=== PATIENT | female | born 1995 | race Caucasian/White ===

== ENCOUNTER → 2017-06-01 | Outpatient (CLI) | payer OTHER ==
--- NOTE | 2017-06-01 09:41 | RADIOLOGY IMAGING REPORT ---
FACILITY: [facility] PATIENT NAME: Kera Choi : 1995 MR: [id number] V: [id number] EXAM DATE: ORDERING PHYSICIAN: NICOLE BARRAGAN TECHNOLOGIST: Location: [facility] Patient: Kera Choi : 1995 Visit/Account:[id number] Date of Sevice: 06/01/2017 GALLBLADDER HISTORY: Right upper quadrant pain since March COMPARISON: None. FINDINGS: Gallbladder: Unremarkable; no stones or sludge. Liver: Negative. Common duct: Normal, 2.9 mm diameter. Pancreas: Partially obscured by bowel, visualized aspects unremarkable. Right kidney: Unremarkable measuring 10.3 cm in length Upper abdominal aorta and IVC: Patent. Ascites: None visualized. IMPRESSION: Unremarkable right upper quadrant ultrasound Report Dictated By: Klarissa Kumar MD at 06/01/2017 9:35 AM Report E-Signed By: Klarissa Kumar MD at 06/01/2017 9:36 AM WSN:[email or web address]
== END ==
LOC: US 08:17
PROVIDERS: ATTEND Family Medicine
DX: R10.811 Right upper quadrant abdominal tenderness (principal)
CPT/HCPCS: 76705

== ENCOUNTER 2018-05-22 21:14 | Emergency (ER) | payer OTHER ==
[2018-05-22] MEDS ORDERED: NS(*) 0.9% 1000 ML BAG 1,000 ML IV ONE ×2 (21:24→22:50)
[2018-05-22] MEDS ORDERED: LEVO50TA80 PO (21:24)
--- NOTE | 2018-05-22 21:38 | EKG ---
FACILITY: [facility] PATIENT NAME: FADI CHISHOLM : [id number] MR: [id number] V: [id number] EXAM DATE: ORDERING PHYSICIAN: CK BENAVIDES TECHNOLOGIST: DORCAS Test Reason : SYNCOPE Blood Pressure : / mmHG Vent. Rate : 119 BPM Atrial Rate : 119 BPM P-R Int : 132 ms QRS Dur : 090 ms QT Int : 306 ms P-R-T Axes : 078 079 055 degrees QTc Int : 430 ms Sinus tachycardia Nonspecific T wave findings No previous ECGs available Confirmed by MARISOL GARCIA ([id number]) on 05/23/2018 1:12:41 AM Referred By: Confirmed By:MARISOL GARCIA
[2018-05-22 21:54] LABS: PLATELET COUNT, AUTOMATED 287 K/uL (150-450)
[2018-05-22] MEDS ORDERED: KETOROLAC 30 MG/ML VIAL IVP ONE (22:35)
[2018-05-22] MEDS ORDERED: fentaNYL CITR 100 MCG/2 ML AMP IVP ONE (22:35)
[2018-05-22] MEDS ORDERED: PROMETHAZINE 25 MG/ML 1 ML AMP IVP ONE (22:35)
[2018-05-22] MEDS ORDERED: PROM-110 PO (22:37)
[2018-05-22] MEDS ORDERED: LOR5/325 PO (22:37)
--- NOTE | 2018-05-22 22:41 | ER Report ---
History and Physical Time Seen By MD: 21:18 Hx. of Stated Complaint: patient states she was diagnosed with flu A yesterday and has been deydrated today. she was sitting in bed and passed out about 1800 HPI/ROS CHIEF COMPLAINT: Flu symptoms, syncope HISTORY OF PRESENT ILLNESS: 22-year-old female brought in by a friend after having a syncopal episode in her bed with flu symptoms. Patient was diagnosed with influenza A. She's been on Tamiflu. Patient was taking some Tylenol today. She's not taken anything else. She sat up in bed and had an episode where she fainted. He reports feeling bad. On arrival, she is tachycardic to 150s and appears dehydrated. REVIEW OF SYSTEMS: Respiratory: no dyspnea. Cardiovascular: No chest pain, no palpitations. Gastrointestinal: No vomiting, no abdominal pain. Musculoskeletal: No back pain. Allergies: Coded Allergies: No Known Drug Allergies (Unverified , 05/22/18) Home Meds Active Scripts Hydrocodone Bit/Acetaminophen (HYDROCODON-ACETAMINOPHEN 5-325) 1 Each Tablet, 1 EACH PO Q4-6H PRN for cough or pain. Suppression, #12 TAKE ONE TABLET BY MOUTH EVERY 4-6 HOURS NEEDED FOR PAIN Prov:CK BENAVIDES DO 05/22/18 Promethazine Hcl (PROMETHAZINE HCL) 25 Mg Tablet, 25 MG PO Q4H PRN for nausea or cough suppression, #14 TAB Prov:CK BENAVIDES DO 05/22/18 Reported Medications Levothyroxine Sodium (SYNTHROID) 50 Mcg Tablet, 50 MCG PO QDAY, TAB 05/22/18 Reviewed Nurses Notes: Yes Old Medical Records Reviewed: Yes Constitutional Vital Sign - Last 24 Hours 05/22/18 05/22/18 05/22/18 05/22/18 21:14 21:18 21:18 21:20 Temp 102.8 Pulse ??? 155 Resp 20 B/P (MAP) 143/97 (112) 143/97 Pulse Ox 88 O2 Delivery Room Air O2 Flow Rate 1.0 05/22/18 05/22/18 05/22/18 05/22/18 21:30 21:44 21:45 21:50 Pulse 134 129 Resp 20 15 B/P (MAP) 143/89 (107) 130/95 (107) Pulse Ox 95 95 2/2305/22/18 05/22/18 05/22/18 22:00 22:15 22:20 22:30 Pulse 121 Resp 15 B/P (MAP) 136/65 (88) 124/68 (86) 116/78 (91) Pulse Ox 97 05/22/18 05/22/18 05/22/18 05/22/18 22:45 22:50 23:00 23:05 Pulse 124 110 Resp 9 11 B/P (MAP) 124/82 (96) 119/65 (83) Pulse Ox 98 96 05/22/18 23:15 Temp 98.4 B/P (MAP) 117/68 (84) Intake and Output 05/22/18 05/22/18 05/23/18 15:00 23:00 07:00 Intake Total 1000 ml 1000 ml Balance 1000 ml 1000 ml Physical Exam Vital signs stable, fever 102.8, pale appearing, tachycardic General Appearance: The patient is alert, has no immediate need for airway protection and no current signs of toxicity., Pale, warm. Skin HEENT: Pupils equal and round no injection. TMs normal, oropharynx with mild erythema Respiratory: Chest is non tender, lungs are clear to auscultation. Cardiac: regular rate and rhythm Gastrointestinal: Abdomen is soft and non tender, no masses, bowel sounds normal. Musculoskeletal: Neck: Neck is supple and non tender. No meningismus, no lymphadenopathy Extremities have full range of motion and are non tender. Skin: No rashes or lesions. DIFFERENTIAL DIAGNOSIS: After history and physical exam differential diagnosis was considered for adult fever including but not limited to viral syndromes including influenza, urinary tract infection, pneumonia and sepsis. Additionally,syncope including but not limited to vasovagal syncope, arrhythmia, dehydration, and blood loss. Medical Decision Making Data Points Result Diagram: 05/22/18214105/22/182141 Laboratory Hematology Test 05/22/18 21:42 05/22/18 22:29 Red Blood Count 4.59 M/uL (4.17-5.56) Mean Corpuscular Volume 90.3 fL (80.0-96.0) Mean Corpuscular Hemoglobin 31.1 pg (26.0-33.0) Mean Corpuscular Hemoglobin Concent 34.4 g/dL (32.0-36.0) Red Cell Distribution Width 12.3 % (11.5-14.5) Mean Platelet Volume 7.3 fL (7.2-11.1) Neutrophils (%) (Auto) 74.9 % (39.4-72.5) Lymphocytes (%) (Auto) 14.0 % (17.6-49.6) Monocytes (%) (Auto) 10.0 % (4.1-12.4) Eosinophils (%) (Auto) 0.6 % (0.4-6.7) Basophils (%) (Auto) 0.5 % (0.3-1.4) Nucleated RBC Relative Count (auto) 0.1 /100WBC Neutrophils # (Auto) 4.0 K/uL (2.0-7.4) Lymphocytes # (Auto) 0.8 K/uL (1.3-3.6) Monocytes # (Auto) 0.5 K/uL (0.3-1.0) Eosinophils # (Auto) 0.0 K/uL (0.0-0.5) Basophils # (Auto) 0.0 K/uL (0.0-0.1) Nucleated RBC Absolute Count (auto) 0.01 K/uL Sodium Level 135 mmol/L (137-145) Potassium Level 3.7 mmol/L (3.5-5.0) Chloride Level 100 mmol/L (98-107) Carbon Dioxide Level 23 mmol/L (22-31) Blood Urea Nitrogen 9 mg/dl (7-18) Creatinine 0.90 mg/dl (0.52-1.04) Glomerular Filtration Rate Calc > 60.0 Random Glucose 91 mg/dl (75-110) Calcium Level 9.0 mg/dl (8.4-10.2) Total Bilirubin 0.5 mg/dl (0.2-1.3) Aspartate Amino Transf (AST/SGOT) 21 U/L (0-35) Alanine Aminotransferase (ALT/SGPT) 29 U/L (0-56) Alkaline Phosphatase 103 U/L (0-126) Total Protein 7.9 g/dl (6.3-8.2) Albumin 4.4 g/dl (3.5-5.0) Human Chorionic Gonadotropin, Qual Negative (NEGATIVE) Urine Color Yellow Urine Clarity Slightly-cloudy Urine pH 5.0 pH (4.8-9.5) Urine Specific [place] 1.011 Urine Protein Negative mg/dL (NEGATIVE) Urine Glucose (UA) Negative mg/dL (NEGATIVE) Urine Ketones 20 mg/dL (NEGATIVE) Urine Blood Large (NEGATIVE) Urine Nitrite Negative (NEGATIVE) Urine Bilirubin Negative (NEGATIVE) Urine Urobilinogen Negative mg/dL (0.2-1.9) Urine Leukocyte Esterase Trace (NEGATIVE) Urine RBC 3 /HPF (0-2/HPF) Urine WBC 7 /HPF (0-5/HPF) Urine Squamous Epithelial Cells Many /LPF (</=FEW) Urine Bacteria Many /HPF (NONE-FEW) Urine Mucus Few /HPF (NONE-FEW) Chemistry Test 05/22/18 21:42 05/22/18 22:29 White Blood Count 5.4 k/uL (4.5-11.0) Red Blood Count 4.59 M/uL (4.17-5.56) Hemoglobin 14.3 g/dL (12.0-16.0) Hematocrit 41.4 % (34.0-47.0) Mean Corpuscular Volume 90.3 fL (80.0-96.0) Mean Corpuscular Hemoglobin 31.1 pg (26.0-33.0) Mean Corpuscular Hemoglobin Concent 34.4 g/dL (32.0-36.0) Red Cell Distribution Width 12.3 % (11.5-14.5) Platelet Count 287 K/uL (150-450) Mean Platelet Volume 7.3 fL (7.2-11.1) Neutrophils (%) (Auto) 74.9 % (39.4-72.5) Lymphocytes (%) (Auto) 14.0 % (17.6-49.6) Monocytes (%) (Auto) 10.0 % (4.1-12.4) Eosinophils (%) (Auto) 0.6 % (0.4-6.7) Basophils (%) (Auto) 0.5 % (0.3-1.4) Nucleated RBC Relative Count (auto) 0.1 /100WBC Neutrophils # (Auto) 4.0 K/uL (2.0-7.4) Lymphocytes # (Auto) 0.8 K/uL (1.3-3.6) Monocytes # (Auto) 0.5 K/uL (0.3-1.0) Eosinophils # (Auto) 0.0 K/uL (0.0-0.5) Basophils # (Auto) 0.0 K/uL (0.0-0.1) Nucleated RBC Absolute Count (auto) 0.01 K/uL Glomerular Filtration Rate Calc > 60.0 Calcium Level 9.0 mg/dl (8.4-10.2) Total Bilirubin 0.5 mg/dl (0.2-1.3) Aspartate Amino Transf (AST/SGOT) 21 U/L (0-35) Alanine Aminotransferase (ALT/SGPT) 29 U/L (0-56) Alkaline Phosphatase 103 U/L (0-126) Total Protein 7.9 g/dl (6.3-8.2) Albumin 4.4 g/dl (3.5-5.0) Human Chorionic Gonadotropin, Qual Negative (NEGATIVE) Urine Color Yellow Urine Clarity Slightly-cloudy Urine pH 5.0 pH (4.8-9.5) Urine Specific [place] 1.011 Urine Protein Negative mg/dL (NEGATIVE) Urine Glucose (UA) Negative mg/dL (NEGATIVE) Urine Ketones 20 mg/dL (NEGATIVE) Urine Blood Large (NEGATIVE) Urine Nitrite Negative (NEGATIVE) Urine Bilirubin Negative (NEGATIVE) Urine Urobilinogen Negative mg/dL (0.2-1.9) Urine Leukocyte Esterase Trace (NEGATIVE) Urine RBC 3 /HPF (0-2/HPF) Urine WBC 7 /HPF (0-5/HPF) Urine Squamous Epithelial Cells Many /LPF (</=FEW) Urine Bacteria Many /HPF (NONE-FEW) Urine Mucus Few /HPF (NONE-FEW) Urinalysis Test 05/22/18 22:29 Urine Color Yellow Urine Clarity Slightly-cloudy Urine pH 5.0 pH (4.8-9.5) Urine Specific [place] 1.011 Urine Protein Negative mg/dL (NEGATIVE) Urine Glucose (UA) Negative mg/dL (NEGATIVE) Urine Ketones 20 mg/dL (NEGATIVE) Urine Blood Large (NEGATIVE) Urine Nitrite Negative (NEGATIVE) Urine Bilirubin Negative (NEGATIVE) Urine Urobilinogen Negative mg/dL (0.2-1.9) Urine Leukocyte Esterase Trace (NEGATIVE) Urine RBC 3 /HPF (0-2/HPF) Urine WBC 7 /HPF (0-5/HPF) Urine Squamous Epithelial Cells Many /LPF (</=FEW) Urine Bacteria Many /HPF (NONE-FEW) Urine Mucus Few /HPF (NONE-FEW) EKG/Imaging EKG Interpretation 12 lead EK Rhythm: Sinus tachycardia 119 bpm [place]: normal QRS: normal ST segments: normal, no evidence of ischemia or dysrhythmia ED Course/Re-evaluation Clinical Indication for ER IV: Hydration, IV Access ED Course Patient was admitted to an examination room. H&P was done. The differential diagnoses was considered. Patient grossly tachycardic and had a syncopal episode. She has a fever to 102.8. She has a recent diagnosis of influenza A. She is currently taking Tamiflu and some Tylenol. She's not been drinking very much. Peripheral IV is established. CBC in the CMP were ordered. Patient's tr eated with IV fluid hydration, Zofran, Toradol, fentanyl. A 2nd liter is administered. Her laboratory studies are unremarkable. An EKG shows sinus tachycardia without evidence of ischemia. Patient's test is negative to rule out ectopic as the etiology of her syncope. Patient feels much better after 2 L, and medication. She'll be discharged home on Phenergan, and hydrocodone tablets. She is advised to continue ibuprofen 600 mg 3 times daily. Decision to Disposition Date: May 22, 2018 Decision to Disposition Time: 22:35 Depart Departure Latest Vital Signs Vital Signs Date Time Temp Pulse Resp B/P (MAP) Pulse Ox O2 Delivery O2 Flow Rate FiO2 05/22/18 23:15 98.4 117/68 (84) 05/22/18 23:05 110 11 96 05/22/18 21:20 1.0 05/22/18 21:18 Room Air Impression: Primary Impression: Influenza A Additional Impressions: Syncope Dehydration Condition: Improved Disposition: HOME OR SELF-CARE New Scripts Hydrocodone Bit/Acetaminophen (HYDROCODON-ACETAMINOPHEN 5-325) 1 Each Tablet 1 EACH PO Q4-6H PRN for cough or pain. Suppression, #12 TAKE ONE TABLET BY MOUTH EVERY 4-6 HOURS NEEDED FOR PAIN Prov: CK BENAVIDES DO 05/22/18 Promethazine Hcl (PROMETHAZINE HCL) 25 Mg Tablet 25 MG PO Q4H PRN for nausea or cough suppression, #14 TAB Prov: CK BENAVIDES DO 05/22/18 Patient Instructions: Influenza (ED), Syncope (ED) Additional Instructions: Take ibuprofen 200 mg 3-4 tablets 3 times a day with food Drink plenty of water, especially popsicles Take medications to control your symptoms and help to sleep Phenergan/promethazine for nausea control and to dry up the cough Hydrocodone to suppress the cough and take care of the body aches and pain Continue Tamiflu until finished Follow-up with student [facility] if unimproved in 3-5 days Problem Qualifiers Additional Impressions: Syncope Syncope type: vasovagal syncope Qualified Codes: R55 - Syncope and collapse CK BENAVIDES DO May 22, 2018 22:41
[2018-05-22 23:15] VITALS: BP 117/68
[2018-05-22] MEDS ORDERED: ACET/HYDROC 5/325MG TH ER ONLY 2 TAB/BOTTLE PO ONE (23:15)
[2018-05-22] MEDS ORDERED: PROMETHAZINE HCL 25 MG TAB TH 2 TAB/BOTTLE PO ONE (23:15)
== END 2018-05-22 23:36 | disposition home or self-care (01) ==
LOC: ER 21:26
DX: J09.X2 Influenza due to identified novel influenza A virus with other respiratory manifestations (principal); R55 Syncope and collapse; E86.0 Dehydration
CPT/HCPCS: 81001; 84703; 85025; 93005; 96361; 96374; 96375; 99284; J1885; J2550; J3010; J7030; 82040; 82247; 82310; 82374; 82435; 82565; 82947; 84075; 84132; 84155; 84295; 84450; 84460; 84520

== ENCOUNTER 2018-05-31 18:20 | Inpatient (IN) | payer OTHER ==
[~2018-05-31] VITALS: Ht 165.1 cm; Wt 95.3 kg
--- NOTE | 2018-05-31 18:21 | ER Report ---
History and Physical Time Seen By MD: 18:21 HPI/ROS CHIEF COMPLAINT: Shortness of breath HISTORY OF PRESENT ILLNESS: 22-year-old female seen here in the ER last week, diagnosed with influenza A. Was discharged home on 05/22/18 with Phenergan, and hydrocodone for symptom relief. Patient got really short of breath yesterday. And severely today. Presented urgent care, was noted to have a pulse ox 84% on room air. Had a chest x-ray performed and serial nebulizers unable to improve her saturation. She was sent over for further evaluation. Chest x-ray suggests comp locating pneumonia. REVIEW OF SYSTEMS: Respiratory: As above Cardiovascular: No chest pain, no palpitations. Gastrointestinal: No vomiting, no abdominal pain. Musculoskeletal: No back pain. Allergies: Coded Allergies: No Known Drug Allergies (Unverified , 05/22/18) Home Meds Reported Medications Levothyroxine Sodium (SYNTHROID) 50 Mcg Tablet, 50 MCG PO QDAY, TAB 05/22/18 Discontinued Scripts Hydrocodone Bit/Acetaminophen (HYDROCODON-ACETAMINOPHEN 5-325) 1 Each Tablet, 1 EACH PO Q4-6H PRN for cough or pain. Suppression, #12 TAKE ONE TABLET BY MOUTH EVERY 4-6 HOURS NEEDED FOR PAIN Prov:CK BENAVIDES DO 05/22/18 Promethazine Hcl (PROMETHAZINE HCL) 25 Mg Tablet, 25 MG PO Q4H PRN for nausea or cough suppression, #14 TAB Prov:CK BENAVIDES DO 05/22/18 Past Medical/Surgical History Influenza, syncope, hypothyroidism Reviewed Nurses Notes: Yes Old Medical Records Reviewed: Yes Constitutional Vital Sign - Last 24 Hours 05/31/18 05/31/18 05/31/18 05/31/18 18:26 18:30 18:38 18:40 Temp 99.0 Pulse 150 90 Resp 30 16 B/P (MAP) 133/95 (108) 133/95 Pulse Ox 77 O2 Delivery Room Air O2 Flow Rate 4.0 05/31/18 05/31/18 05/31/18 05/31/18 18:40 18:43 18:45 18:46 Pulse 99 Resp 16 B/P (MAP) 122/69 (86) 135/74 (94) Pulse Ox 96 O2 Delivery Nasal Cannula O2 Flow Rate 3.0 05/31/18 05/31/18 05/31/1819 18:50 19:00 19:20 19:45 Pulse 125 110 Resp 26 18 B/P (MAP) 130/71 (90) 123/59 (80) Pulse Ox 91 91 Physical Exam Vital signs stable, moderate tachycardia of 110. Pulse ox 76% on walking in. At rest 84% on room air General Appearance: The patient is alert, has no immediate need for airway protection and no current signs of toxicity. Slightly pale appearing, skin warm and dry, moderate respiratory distress HEENT: Pupils equal and round no injection. TMs normal, oropharynx with mild erythema, no exudate Respiratory: [Chest is non tender, right basilar crackles Cardiac: regular rate and rhythm Gastrointestinal: Abdomen is soft and non tender, no masses, bowel sounds normal. Musculoskeletal: Neck: Neck is supple and non tender. Extremities have full range of motion and are non tender. No edema, no calf tenderness Skin: No rashes or lesions. DIFFERENTIAL DIAGNOSIS: After history and physical exam differential diagnosis was considered for shortness of breath including but not limited to pulmonary infectious process, COPD, asthma, pulmonary embolus and congestive heart failure. Medical Decision Making Data Points Result Diagram: 05/31/18 1831 05/31/18 1831 Laboratory Hematology Test 05/31/18 18:31 Red Blood Count 4.74 M/uL (4.17-5.56) Mean Corpuscular Volume 89.8 fL (80.0-96.0) Mean Corpuscular Hemoglobin 30.9 pg (26.0-33.0) Mean Corpuscular Hemoglobin Concent 34.4 g/dL (32.0-36.0) Red Cell Distribution Width 12.6 % (11.5-14.5) Mean Platelet Volume 7.8 fL (7.2-11.1) Neutrophils (%) (Auto) 77.2 % (39.4-72.5) Lymphocytes (%) (Auto) 12.1 % (17.6-49.6) Monocytes (%) (Auto) 9.1 % (4.1-12.4) Eosinophils (%) (Auto) 0.7 % (0.4-6.7) Basophils (%) (Auto) 0.9 % (0.3-1.4) Nucleated RBC Relative Count (auto) 0.1 /100WBC Neutrophils # (Auto) 8.2 K/uL (2.0-7.4) Lymphocytes # (Auto) 1.3 K/uL (1.3-3.6) Monocytes # (Auto) 1.0 K/uL (0.3-1.0) Eosinophils # (Auto) 0.1 K/uL (0.0-0.5) Basophils # (Auto) 0.1 K/uL (0.0-0.1) Nucleated RBC Absolute Count (auto) 0.01 K/uL Peripheral Blood Smear Yes Y/N Sodium Level 136 mmol/L (137-145) Potassium Level 3.5 mmol/L (3.5-5.0) Chloride Level 100 mmol/L (98-107) Carbon Dioxide Level 20 mmol/L (22-31) Blood Urea Nitrogen 8 mg/dl (7-18) Creatinine 0.60 mg/dl (0.52-1.04) Glomerular Filtration Rate Calc > 60.0 Random Glucose 90 mg/dl (75-110) Lactate 2.0 mmol/L (0.7-2.1) Calcium Level 9.2 mg/dl (8.4-10.2) Total Bilirubin 0.6 mg/dl (0.2-1.3) Aspartate Amino Transf (AST/SGOT) 36 U/L (0-35) Alanine Aminotransferase (ALT/SGPT) 49 U/L (0-56) Alkaline Phosphatase 99 U/L (0-126) B-Type Natriuretic Peptide 8 pg/ml (0-100) Total Protein 7.7 g/dl (6.3-8.2) Albumin 4.3 g/dl (3.5-5.0) Human Chorionic Gonadotropin, Qual Negative (NEGATIVE) Chemistry Test 05/31/18 18:31 White Blood Count 10.7 k/uL (4.5-11.0) Red Blood Count 4.74 M/uL (4.17-5.56) Hemoglobin 14.6 g/dL (12.0-16.0) Hematocrit 42.5 % (34.0-47.0) Mean Corpuscular Volume 89.8 fL (80.0-96.0) Mean Corpuscular Hemoglobin 30.9 pg (26.0-33.0) Mean Corpuscular Hemoglobin Concent 34.4 g/dL (32.0-36.0) Red Cell Distribution Width 12.6 % (11.5-14.5) Platelet Count 566 K/uL (150-450) Mean Platelet Volume 7.8 fL (7.2-11.1) Neutrophils (%) (Auto) 77.2 % (39.4-72.5) Lymphocytes (%) (Auto) 12.1 % (17.6-49.6) Monocytes (%) (Auto) 9.1 % (4.1-12.4) Eosinophils (%) (Auto) 0.7 % (0.4-6.7) Basophils (%) (Auto) 0.9 % (0.3-1.4) Nucleated RBC Relative Count (auto) 0.1 /100WBC Neutrophils # (Auto) 8.2 K/uL (2.0-7.4) Lymphocytes # (Auto) 1.3 K/uL (1.3-3.6) Monocytes # (Auto) 1.0 K/uL (0.3-1.0) Eosinophils # (Auto) 0.1 K/uL (0.0-0.5) Basophils # (Auto) 0.1 K/uL (0.0-0.1) Nucleated RBC Absolute Count (auto) 0.01 K/uL Peripheral Blood Smear Yes Y/N Glomerular Filtration Rate Calc > 60.0 Lactate 2.0 mmol/L (0.7-2.1) Calcium Level 9.2 mg/dl (8.4-10.2) Total Bilirubin 0.6 mg/dl (0.2-1.3) Aspartate Amino Transf (AST/SGOT) 36 U/L (0-35) Alanine Aminotransferase (ALT/SGPT) 49 U/L (0-56) Alkaline Phosphatase 99 U/L (0-126) B-Type Natriuretic Peptide 8 pg/ml (0-100) Total Protein 7.7 g/dl (6.3-8.2) Albumin 4.3 g/dl (3.5-5.0) Human Chorionic Gonadotropin, Qual Negative (NEGATIVE) EKG/Imaging EKG Interpretation 12 lead EK Rhythm: normal sinus rhythm [place]: normal QRS: normal ST segments:, S in 1, Q in 3, inverted T-wave in 3 noted Imaging X-ray: Two-view chest x-ray from urgent care reviewed was obtained. I viewed the images myself on the PACS system. My interpretation of the images is: There is dense consolidation in the anterior aspect of the right lower lobe. The radiologist interpretation had no clinically significant variation from this interpretation. Results: CT scan of the CTA pulmonary and gram was obtained. The results of the study are CT angiogram chest with contrast Indication: Severe dyspnea. Elevated d-dimer. Comparison: None available. Technique: Axial CT images are obtained through the chest after administration of 75 mL Isovue 370 IV contrast. Reformatted coronal and sagittal images were reviewed as well as coronal MIP images. One of the following dose optimization techniques was utilized in the performance of this exam: automated exposure control; adjustment of the mA and/or kV according to the patient's size; or use of an iterative reconstruction technique. Specific details can be referenced in the facility's radiology CT exam operational policy. FINDINGS: No evidence of filling defect within the pulmonary vasculature to suggest pulmonary embolus. The heart is normal size without pericardial effusion. Aorta shows no aneurysm or dissection. Mediastinum and hilar regions show no abnormal density. There are prominent lymph nodes present specimen the right hilar region with the largest lymph node measuring 2.8 x 1.8 cm. Consolidation of the anterior right lower lobe. Small right pleural effusion w ith atelectasis. There is diffuse patchy interstitial opacities seen in the lungs bilaterally without other areas of consolidation. No discrete nodules. Airways are clear. Bony structures show no acute fractures or aggressive bony lesions. Chest wall shows no enlarged axillary lymph nodes or masses. Limited views of the upper abdomen are unremarkable. IMPRESSION: 1. No evidence of pulmonary embolus. 2. Right lower lobe pneumonia. There is a small right pleural effusion with atelectasis. There is diffuse bilateral interstitial opacities which also may represent multilobar pneumonia. Follow-up exam can evaluate for clearing or other etiologies. 3. Enlarged right hilar lymph nodes are likely reactive. The study was read by the radiologist. I viewed the images myself on the PACS system. ED Course/Re-evaluation Clinical Indication for ER IV: Hydration, IV Access ED Course Patient was admitted to an examination room. H&P was done. The differential diagnoses was considered. On conical examination. Patient severely short of breath. Tachycardic. Patient was sent over from urgent care with a chest x-ray suggesting a pneumonia in the right lower lobe anterior segment. Patient was hypoxic at 84% on room air with significant respiratory distress and work. Her room air pulse ox on arrival was 77%. Patient was placed on supplemental O2. She required 4 L to get her saturations in the low 90s. Blood cultures were drawn. A lactate was drawn which returned at 2.0. D-dimer was noted from urgent care 2.2. An EKG was performed here which shows S1, Q in 3, inverted T in3 suspicious for pulmonary edema some. A CT pulmonary angiogram was ordered. It was negative for pulmonary embolism. It did show multiple infiltrates bilaterally, right greater than left. Patient was given 2 g of Rocephin IV. Patient's potassium from urgent care, was noted to be 2.9. On repeated is 3.5. She is not received any supplementation. Case was discussed with Dr. Karina rincon and the patient was admitted. 05/31/2018 8:12:15 pm case discussed with Dr. Karina rincon on-call, who accepts the patient for admission. Decision to Disposition Date: May 31, 2018 Decision to Disposition Time: 18:38 Depart Departure Latest Vital Signs Vital Signs Date Time Temp Pulse Resp B/P (MAP) Pulse Ox O2 Delivery O2 Flow Rate FiO2 05/31/18 19:45 123/59 (80) 05/31/18 19:20 110 18 91 05/31/18 18:40 Nasal Cannula 3.0 05/31/18 18:30 99.0 Impression: Primary Impression: Right lower lobe pneumonia Additional Impressions: Hypoxemia Hypothyroidism Condition: Improved Disposition: Admitted from ER Problem Qualifiers Primary Impression: Right lower lobe pneumonia Pneumonia type: due to unspecified organism Qualified Codes: J18.1 - Lobar pneumonia, unspecified organism Additional Impressions: Hypothyroidism Hypothyroidism type: unspecified Qualified Codes: E03.9 - Hypothyroidism, unspecified CK BENAVIDES DO May 31, 2018 18:21
[2018-05-31] MEDS ORDERED: NS(*) 0.9% 1000 ML BAG 1,000 ML IV ONE (18:29)
[2018-05-31] MEDS ORDERED: ALBUTEROL/IPRATROPIUM 3 ML NEB NEB ONE (18:30)
[2018-05-31 18:46] LABS: PLATELET COUNT, AUTOMATED 566 K/uL (150-450)
--- NOTE | 2018-05-31 18:48 | EKG ---
FACILITY: [facility] [place] PATIENT NAME: FADI CHISHOLM : [id number] MR: [id number] V: [id number] EXAM DATE: ORDERING PHYSICIAN: CK BENAVIDES TECHNOLOGIST: JEFF Test Reason : DYSPNEA Blood Pressure : / mmHG Vent. Rate : 099 BPM Atrial Rate : 099 BPM P-R Int : 136 ms QRS Dur : 094 ms QT Int : 346 ms P-R-T Axes : 069 063 011 degrees QTc Int : 444 ms Normal sinus rhythm Nonspecific T wave abnormality Abnormal ECG When compared with ECG of 22-MAY-2018 21:24, T wave inversion now evident in Inferior leads T wave inversion now evident in Anterior leads Confirmed by ARABELLA VALDERRAMA ([id number]) on 05/31/2018 10:16:22 PM Referred By: Confirmed By:ARABELLA VALDERRAMA
[2018-05-31] MEDS ORDERED: NS(*) 0.9% 50 ML BAG 50 ML ONE (19:34)
[2018-05-31] MEDS ORDERED: IOPAMIDOL 76% 100 ML INFUS BTL 100 ML ONE (19:34)
--- NOTE | 2018-05-31 20:03 | RADIOLOGY IMAGING REPORT ---
FACILITY: [facility] PATIENT NAME: Kera Choi : 1995 MR: [id number] V: [id number] EXAM DATE: ORDERING PHYSICIAN: CK BENAVIDES TECHNOLOGIST: Location: [facility] - [place] Patient: Kera Choi : 1995 Visit/Account:[id number] Date of Sevice: 05/31/2018 CT angiogram chest with contrast Indication: Severe dyspnea. Elevated d-dimer. Comparison: None available. Technique: Axial CT images are obtained through the chest after administration of 75 mL Isovue 370 IV contrast. Reformatted coronal and sagittal images were reviewed as well as coronal MIP images. One of the following dose optimization techniques was utilized in the performance of this exam: auto mated exposure control; adjustment of the mA and/or kV according to the patient's size; or use of an iterative reconstruction technique. Specific details can be referenced in the facility's radiology C T exam operational policy. FINDINGS: No evidence of filling defect within the pulmonary vasculature to suggest pulmonary embolus. The heart is normal size without pericardial effusion. Aorta shows no aneurysm or dissection. Mediast inum and hilar regions show no abnormal density. There are prominent lymph nodes present specimen the right hilar region with the largest lymph node measuring 2.8 x 1.8 cm. Consolidation of the anterior right lower lobe. Small right pleural effusion with atelectasis. There is diffuse patchy interstitial opacities seen in the lungs bilaterally without other areas of consoli dation. No discrete nodules. Airways are clear. Bony structures show no acute fractures or aggressive bony lesions. Chest wall shows no enlarged axil eber lymph nodes or masses. Limited views of the upper abdomen are unremarkable. IMPRESSION: 1. No evidence of pulmonary embolus. 2. Right lower lobe pneumonia. There is a small right pleural effusion with atelectasis. There is dif fuse bilateral interstitial opacities which also may represent multilobar pneumonia. Follow-up exam c an evaluate for clearing or other etiologies. 3. Enlarged right hilar lymph nodes are likely reactive. Report Dictated By: Cosmo Montano at 05/31/2018 7:54 PM Report E-Signed By: Cosmo Montano at 05/31/2018 8:00 PM [id number]
[2018-05-31] MEDS ORDERED: cefTRIAXone(*) 2 GM VIAL 2 GM in NS(*) 0.9% 100 ML ADDVANT BAG 100 ML IVPB ONE (20:10)
[2018-05-31 21:49] VITALS: BP 131/59
[2018-05-31] MEDS ORDERED: INFLUENZA VIRUS VAC 0.5ML SYR IM ONLY ONE (22:10)
--- NOTE | 2018-05-31 22:14 | History & Physical ---
History of Present Illness Chief Complaint Shortness of breath History of Present Illness This patient presented to the emergency room complaining of shortness of breath. She was diagnosed with influenza late last month and was improving, but started to have increased shortness of breath over the past several days. History Problems: (1) Hypothyroidism Status: Acute Home Meds Reported Medications Levothyroxine Sodium (SYNTHROID) 50 Mcg Tablet, 50 MCG PO QDAY, TAB 05/22/18 Discontinued Scripts Hydrocodone Bit/Acetaminophen (HYDROCODON-ACETAMINOPHEN 5-325) 1 Each Tablet, 1 EACH PO Q4-6H PRN for cough or pain. Suppression, #12 TAKE ONE TABLET BY MOUTH EVERY 4-6 HOURS NEEDED FOR PAIN Prov:CK BENAVIDES DO 05/22/18 Promethazine Hcl (PROMETHAZINE HCL) 25 Mg Tablet, 25 MG PO Q4H PRN for nausea or cough suppression, #14 TAB Prov:CK BENAVIDES DO 05/22/18 Allergies: Coded Allergies: No Known Drug Allergies (Unverified , 05/22/18) Hx Alcohol Use: Yes (OCC) Review of Systems All Systems Reviewed/Normal: Yes, Except as Noted Respiratory: Shortness of Breath Exam Vital Signs Vital Signs Date Time Temp Pulse Resp B/P (MAP) Pulse Ox O2 Delivery O2 Flow Rate FiO2 05/31/18 21:49 99.8 95 24 131/59 (83) 94 Nasal Cannula 3.0 Neuro: No Gross deficits Eyes: PERRLA Cardiovascular: Regular Rate and Rhythm Respiratory: Other (Crackles on right.) GI: Abd Soft and Non-Tender Extremities: No Edema Integumentary: No Cyanosis Medical Decision Making Data Points Result Diagram: 05/31/18183005/31/181830 Assessment and Plan Problems: (1) Bacterial pneumonia Assessment & Plan: Her chest CT did show a right sided infiltrate. She has been started on empiric treatment with ceftriaxone and azithromycin. Cultures are pending. (2) Hypoxemia Status: Acute Assessment & Plan: She does require supplemental oxygen. (3) Hypothyroidism Status: Acute Assessment & Plan: She is on chronic treatment with Synthroid. Venous Thromboembolism Antithrombotics Is Pt On Any Antithrombotics?: No Exam Sepsis Risk: Sepsis Risk Problem Qualifiers (1) Hypothyroidism: Hypothyroidism type: unspecified Qualified Codes: E03.9 - Hypothyroidism, unspecified ARABELLA VALDERRAMA DO May 31, 2018 22:14
[2018-05-31] MEDS ORDERED: AZITHROMYCIN(*) 500 MG 500 MG ONE (22:40)
[2018-05-31] MEDS ORDERED: NS(*) 0.9% 250 ML BAG 250 ML ONE (22:40)
[2018-05-31] MEDS ORDERED: WATER STERILE(*) 10 ML VIAL 10 ML ONE (22:40)
[2018-05-31] MEDS ORDERED: AZITHROMYCIN(*) 500 MG 500 MG in NS(*) 0.9% 250 ML BAG 250 ML IVPB SCH (22:51)
[2018-05-31] MEDS: NS(*) 0.9% 1000 ML BAG 1,000 ML IV PRN (23:05)
[2018-06-01] MEDS ORDERED: BENZONATATE 100 MG CAP PO PRN (00:30)
[2018-06-01 02:40] VITALS: BP 131/87
[2018-06-01] MEDS: LEVOTHYROXINE SOD 0.05 MG TAB PO SCH (05:16)
[2018-06-01] MEDS: NS(*) 0.9% 1000 ML BAG 1,000 ML IV PRN (07:13)
[2018-06-01 07:43] VITALS: BP 143/91
[2018-06-01] MEDS ORDERED: LEVALBUTEROL 1.25 MG/3 ML NEB NEB PRN (08:30)
[2018-06-01] MEDS ORDERED: methylPREDNIS SUCC 125 MG/2ML IVP ONE (08:30)
[2018-06-01] MEDS: ALBUTEROL/IPRATROPIUM 3 ML NEB NEB SCH ×3 (09:05→17:07)
[2018-06-01] MEDS: guaiFENesin SYR 200MG/10ML UDC PO PRN (09:28)
[2018-06-01 09:43] VITALS: Ht 165.1 cm; Wt 95.3 kg
--- NOTE | 2018-06-01 10:59 | Hospitalist Progress Note ---
Subjective Progress Notes Subjective She was admitted with pneumonia. She is still requiring 2.5L of oxygen. She reports she does not feel well today. She has cough, congestion, SOB. Patient Complains of: Cardiovascular: No: Chest Pain Respiratory: Cough, Congestion, Shortness of Breath Physical Exam Vital Signs Date Time Temp Pulse Resp B/P (MAP) Pulse Ox O2 Delivery O2 Flow Rate FiO2 06/01/18 09:07 93 Nasal Cannula 1.0 06/01/18 09:07 105 16 06/01/18 07:43 98.6 143/91 (108) Intake and Output 06/01/18 00:00 Intake Total 1600 ml Balance 1600 ml Intake Oral 600 ml IV Total 1000 ml General Appearance: Alert, Awake, No Acute Distress, Afebrile Neuro: No Gross deficits Cardiovascular: Regular Rate and Rhythm Respiratory: No Respiratory Distress, Other (expiratory wheezes, diffuse rhonchi throughout bilateral lung otto) GI: Soft and Non-Tender Extremities: Warm, Perfused; No Edema Psych: Alert & Oriented X3, Appropriate Mood & Affect Result Diagram: 05/31/18183005/31/181830 Assessment and Plan Problems: (1) Bacterial pneumonia Assessment & Plan: Her chest CT did show a right sided infiltrate. She has been started on empiric treatment with ceftriaxone and azithromycin. Blood cultures are pending show no growth currently. She will be placed on IV steroids and nebulizers today. (2) Hypoxemia Status: Acute Assessment & Plan: She does require supplemental oxygen. (3) Hypothyroidism Status: Acute Assessment & Plan: She is on chronic treatment with Synthroid. Exam Sepsis Risk: Sepsis Risk Problem Qualifiers (1) Hypothyroidism: Hypothyroidism type: unspecified Qualified Codes: E03.9 - Hypothyroidism, unspecified IMER JAMES [employer] Jun 01, 2018 10:59
[2018-06-01] MEDS ORDERED: PROMETHAZINE 25 MG/ML 1 ML AMP IVP PRN (11:05)
--- NOTE | 2018-06-01 11:45 | Antimicrobial Stewardship ---
Antimicrobial Stewardship Empiricly appropriate: Yes (CAP s/p influenza ) Significant PMH: Yes (hypothyroidism, hx influenza A 2 weeks ago) Support empiric regimen: Yes (Ceftriaxone/Azithromycin ) Approriate Cultures done: Yes (Blood cx x 2 - NGTD) IV to PO Opportunity: No Comment Will monitor and switch once appropriate Determine cumulative duration: Today is day 2 Determine standard duration: Total duration is 5 days total Comment 22 yo F with a PMH of hypothyroidism who presented to the ED with SOB. She was in the ED a week ago diagnosed with influenza A. Tmax 99.8 WBC 10.7 Lactate 2 K = 3.5 CTA of Chest- showed RLL pneumonia, no PE (elevated d-dimer) Plan to continue azithromycin and ceftriaxone for CAP for 5-7days. Will monitor and switch to oral antibiotics as appropriate. Padmini Singh, PharmD, BCOP PADMINI SINGH Jun 01, 2018 11:45
[2018-06-01 12:45] VITALS: BP 150/88
[2018-06-01 14:49] VITALS: BP 137/85
[2018-06-01] MEDS ORDERED: D5W IVPB SCH (20:00)
[2018-06-01] MEDS ORDERED: CEFTRIAXONE IVPB SCH (20:00)
[2018-06-01] MEDS: cefTRIAXone 2 GM VIAL IVP SCH (20:33)
[2018-06-01 20:36] VITALS: BP 128/80
[2018-06-01] MEDS: AZITHROMYCIN(*) 500 MG 500 MG in NS(*) 0.9% 250 ML BAG 250 ML IVPB SCH (20:43)
[2018-06-02 03:09] VITALS: BP 126/93
[2018-06-02] MEDS: ACETAMINOPHEN 325 MG TAB PO PRN ×2 (03:18→22:00)
[2018-06-02] MEDS: ALBUTEROL/IPRATROPIUM 3 ML NEB NEB SCH ×4 (05:31→18:26)
[2018-06-02] MEDS: LEVOTHYROXINE SOD 0.05 MG TAB PO SCH (05:39)
[2018-06-02] MEDS: guaiFENesin SYR 200MG/10ML UDC PO PRN (05:43)
[2018-06-02 06:13] LABS: PLATELET COUNT, AUTOMATED 469 K/uL (150-450)
[2018-06-02 07:32] VITALS: BP 138/90
[2018-06-02] MEDS: methylPREDNIS SUCC 125 MG/2ML IVP SCH ×2 (09:55→21:01)
--- NOTE | 2018-06-02 11:05 | Hospitalist Progress Note ---
Subjective Progress Notes Subjective She was admitted with pneumonia. She reports improvement in symptoms. She has been on a room air trial, not requiring as much oxygen. She has cough. Patient Complains of: Cardiovascular: No: Chest Pain Respiratory: Cough; No: Shortness of Breath Physical Exam Vital Signs Date Time Temp Pulse Resp B/P (MAP) Pulse Ox O2 Delivery O2 Flow Rate FiO2 06/02/18 09:12 98 18 06/02/18 09:07 93 Nasal Cannula 1.0 06/02/18 07:32 97.5 138/90 (106) Intake and Output 06/02/18 07:00 Intake Total 2931 ml Balance 2931 ml Intake Oral 1400 ml IV Total 1531 ml # Voids 5 # Emeses 1 General Appearance: Alert, Awake, No Acute Distress, Afebrile Neuro: No Gross deficits Cardiovascular: Regular Rate and Rhythm Respiratory: No Respiratory Distress, Other (dimisnished in bilateral bases) GI: Soft and Non-Tender Psych: Alert & Oriented X3, Appropriate Mood & Affect Result Diagram: 06/02/1851806/02/18518 Assessment and Plan Problems: (1) Bacterial pneumonia Assessment & Plan: Her chest CT did show a right sided infiltrate. She has been started on empiric treatment with ceftriaxone and azithromycin. Blood cultures are pending show no growth currently. She was placed on IV steroids and nebulizers. (2) Hypoxemia Status: Acute Assessment & Plan: She does require supplemental oxygen. (3) Hypothyroidism Status: Acute Assessment & Plan: She is on chronic treatment with Synthroid. Exam Sepsis Risk: No Definite Risk Problem Qualifiers (1) Hypothyroidism: Hypothyroidism type: unspecified Qualified Codes: E03.9 - Hypothyroidism, unspecified IMER JAMES [facility] Jun 02, 2018 11:04
[2018-06-02 12:22] VITALS: BP 130/91
[2018-06-02 15:49] VITALS: BP 130/82
[2018-06-02 19:53] VITALS: BP 138/87
[2018-06-02] MEDS: cefTRIAXone 2 GM VIAL IVP SCH (19:57)
[2018-06-02] MEDS: NS(*) 0.9% 1000 ML BAG 1,000 ML IV PRN (20:08)
[2018-06-02] MEDS: AZITHROMYCIN(*) 500 MG 500 MG in NS(*) 0.9% 250 ML BAG 250 ML IVPB SCH (20:59)
[2018-06-03 01:04] VITALS: BP 141/95
[2018-06-03] MEDS: ALBUTEROL/IPRATROPIUM 3 ML NEB NEB SCH ×2 (05:28→09:11)
[2018-06-03] MEDS: LEVOTHYROXINE SOD 0.05 MG TAB PO SCH (06:10)
[2018-06-03 06:59] VITALS: BP 142/94
[2018-06-03] MEDS ORDERED: predniSONE 20 MG TAB PO ONE (08:30)
[2018-06-03] MEDS ORDERED: ALBU8.5H IH (10:05)
[2018-06-03] MEDS ORDERED: AZIT-18 PO (10:05)
[2018-06-03] MEDS ORDERED: CEF300 PO (10:05)
--- NOTE | 2018-06-03 10:08 | Hospitalist Depart ---
Discharge Summary Reason for Hosp/Final Diag: (1) Bacterial pneumonia Hospital Course & Plan: Her chest CT did show a right sided infiltrate. She has been started on empiric treatment with ceftriaxone and azithromycin. Blood cultures show no growth. She was placed on IV steroids and nebulizers. She will receive one oral steroid dose today, then stop. She will be transitioned to oral Omnicef and Azithromycin. Recommended follow up next week with PCP. (2) Hypoxemia Status: Acute Hospital Course & Plan: She did require supplemental oxygen throughout admission. She is now on room air without difficulty breathing and maintaining oxygen saturations above 90%. (3) Hypothyroidism Status: Acute Hospital Course & Plan: She is on chronic treatment with Synthroid. Departure Latest Vital Signs Vital Signs 06/03/18 06/03/18 06/03/18 06/03/18 06:59 07:48 09:09 09:14 Temp 98.4 Pulse 83 Resp 16 B/P (MAP) 142/94 (110) Pulse Ox 90 O2 Delivery Room Air O2 Flow Rate 2.0 Weight (Pounds): 210 Result Diagram: 06/02/1851806/02/18518 Condition: Improved Discharge: Home, Self Care Discharge Instructions Home Meds Active Scripts Albuterol Sulfate 90 Mcg/Act (PROAIR HFA 90 MCG/ACT) 8.5 Gm Hfa.aer.ad, 2 PUFF IH Q4-6H PRN for SOB/Wheezing, #1 INHALER Prov:IMER JAMES [facility] 06/03/18 Cefdinir 300 Mg Cap (OMNICEF 300 MG CAP (OR EQUIV)) 300 Mg Cap, 300 MG PO BID, #8 CAP Prov:IMER JAMES [facility] 06/03/18 Azithromycin 250 Mg Tab (AZITHROMYCIN 250 MG TAB) 250 Mg Tablet, 250 MG PO QDAY@2100, #2 TAB Prov:IMER JAMES [facility] 06/03/18 Reported Medications Levothyroxine Sodium (SYNTHROID) 50 Mcg Tablet, 50 MCG PO QDAY, TAB 05/22/18 Discontinued Scripts Hydrocodone Bit/Acetaminophen (HYDROCODON-ACETAMINOPHEN 5-325) 1 Each Tablet, 1 EACH PO Q4-6H PRN for cough or pain. Suppression, #12 TAKE ONE TABLET BY MOUTH EVERY 4-6 HOURS NEEDED FOR PAIN Prov:CK BENAVIDES DO 05/22/18 Promethazine Hcl (PROMETHAZINE HCL) 25 Mg Tablet, 25 MG PO Q4H PRN for nausea or cough suppression, #14 TAB Prov:CK BENAVIDES DO 05/22/18 Diet: Regular Activity: As Tolerated Special Instructions: Follow up with Primary Care Provider next week. Take antibiotics as prescribed. Use albuterol inhaler as needed for shortness of breath or wheezing. Increase hydration and rest. Venous Thromboembolism Antithrombotics Is Pt On Any Antithrombotics?: No Problem Qualifiers (1) Hypothyroidism: Hypothyroidism type: unspecified Qualified Codes: E03.9 - Hypothyroidism, unspecified IMER JAMES DIRECTOR [employer]INICAL TRIALS Jun 03, 2018 10:08
[2018-06-03] MEDS ORDERED: CEFDINIR 300 MG CAP PO SCH (21:00)
[2018-06-03] MEDS ORDERED: AZITHROMYCIN 250 MG TAB PO SCH (21:00)
== END 2018-06-03 11:35 | disposition home or self-care (01) | DRG 195 ==
LOC: ER 18:56 → MED 20:23
PROVIDERS: ADMIT Family Medicine; ATTEND Family Medicine
DX: J15.9 Unspecified bacterial pneumonia (principal); R09.02 Hypoxemia; E03.9 Hypothyroidism, unspecified
CPT/HCPCS: 36415; 71275; 82040; 82247; 82310; 82374; 82435; 82565; 82947; 83605; 83880; 84075; 84132; 84155; 84295; 84450; 84460; 84520; 84703; 85025; 87040; 93005; 94640; 94667; 94668; 96361; 96365; J0456; J0696; J2550; J2930; J7030; J7050; J7512; Q9967

== ENCOUNTER → 2018-05-31 | Outpatient (REF) | payer OTHER ==
[~2018-05-31] MED LIST: LEVO50TA80 PO; LOR5/325 PO; PROM-110 PO
[2018-05-31 17:59] LABS: PLATELET COUNT, AUTOMATED 546 K/uL (150-450)
== END ==
PROVIDERS: ATTEND Family Medicine
DX: R06.02 Shortness of breath (principal)
CPT/HCPCS: 82040; 82247; 82310; 82374; 82435; 82565; 82947; 84075; 84132; 84155; 84295; 84450; 84460; 84520; 85025; 85379; 86140

== ENCOUNTER → 2018-10-01 | Outpatient (CLI) | payer OTHER ==
[2018-06-01 09:43] VITALS: BMI 34.9
[~2018-10-01] MED LIST changes: +ALBU8.5H IH; +AZIT-18 PO; +CEF300 PO
--- NOTE | 2018-10-01 14:07 | RADIOLOGY IMAGING REPORT ---
[place] [facility] [place] NAME: Kera Choi : 1995 MR: [id number] V: [id number] EXAM DATE: ORDERING PHYSICIAN: MIGNON CABRAL TECHNOLOGIST: Location: [facility] [place] Patient: Kera Choi : 1995 Visit/Account:[id number] Date of Sevice: 10/01/2018 CT of the right foot INDICATION: Pain on top of 2nd toe. COMPARISON: None available. Technique: Axial CT images were obtained through the right foot. Reformatted coronal and sagittal im ages were reviewed. One of the following dose optimization techniques was utilized in the performance of this exam: autom ated exposure control; adjustment of the mA and/or kV according to the patient's size; or use of an i terative reconstruction technique. Specific details can be referenced in the facility's radiology CT exam operational policy. FINDINGS: There is no acute fracture-dislocation. The Achilles tendon attachment upon the calcaneal tuberosity is intact. Plantar fascia appears intact and unremarkable as well. There are no significant degenerative changes of the visualized midfoot articulations or the visualiz ed IP joints. No significant ankle joint effusion. The visualized flexor and extensor tendons of the midfoot and forefoot appear overall intact with no significant tenosynovitis identified or other focal abnormality. IMPRESSION: 1. No acute osseous abnormality of the right foot. 2. No focal soft tissue abnormality. Report Dictated By: Wilner Pulido MD at 10/01/2018 1:57 PM Report E-Signed By: Wilner Pulido MD at 10/01/2018 2:00 PM [id number]
== END ==
LOC: CT 00:45
PROVIDERS: ATTEND Nurse Practitioner Family
DX: M79.671 Pain in right foot (principal)